=== PATIENT | male | born 1950 ===

== ENCOUNTER 2017-05-04 14:39 | Emergency (ER) | payer OTHER ==
[2017-05-04 15:46] VITALS: TEMP 98.1
--- NOTE | 2017-05-04 16:22 | ED PDOC ---
HPI: General Adult Time Seen by Provider: 05/04/17 15:05 Chief Complaint (Nursing): Headache Chief Complaint (Provider): Dizziness, Body Aches History Per: Patient History/Exam Limitations: no limitations Onset/Duration Of Symptoms: Days (x 5) Current Symptoms Are (Timing): Still Present Additional Complaint(s): Luke is a 66 y/o male who presents to the ED complaining of dizziness, body aches, and chills for the past 5 days. Patient denies fever, vomiting, or abdominal pain. He has no past medical history and takes no medications. PMD: None Provided Past Medical History Reviewed: Historical Data, Nursing Documentation, Vital Signs Vital Signs: Last Vital Signs Temp 98.1 F 05/04/17 19:34 Pulse 65 05/04/17 19:34 Resp 19 05/04/17 19:34 BP 127/73 05/04/17 19:34 Pulse Ox 99 05/04/17 19:34 - Medical History PMH: No Chronic Diseases - Surgical History Surgical History: No Surg Hx - Family History Family History: States: Unknown Family Hx (no pertinent family history) - Social History Current smoker - smoking cessation education provided: No Alcohol: None Drugs: Denies - Immunization History Hx Tetanus Toxoid Vaccination: No Hx Influenza Vaccination: No Hx Pneumococcal Vaccination: No - Home Medications Home Medications: Ambulatory Orders Medication Instructions Recorded "Natural Pill For Prostate'' 03/31/14 Acetaminophen/Codeine Phosph 1 tab PO Q4 PRN #20 tab 03/31/14 [Acetaminophen and Codeine Phosphate #3 300 mg] Ibuprofen [Motrin Tab] 600 mg PO Q6 PRN #15 tab 05/04/17 Oseltamivir [Tamiflu] 75 mg PO BID #10 cap 05/04/17 - Allergies Allergies/Adverse Reactions: Allergies Allergy/AdvReac Type Severity Reaction Status Date / Time No Known Allergies Allergy Unverified 05/04/17 15:43 Review of Systems ROS Statement: Except As Marked, All Systems Reviewed And Found Negative Constitutional: Positive for: Chills, Other (body aches). Negative for: Fever Gastrointestinal: Negative for: Vomiting, Abdominal Pain Neurological: Positive for: Dizziness Physical Exam - Reviewed Nursing Documentation Reviewed: Yes Vital Signs Reviewed: Yes - Physical Exam Appears: Positive for: Well, No Acute Distress Head Exam: Positive for: ATRAUMATIC, NORMAL INSPECTION Skin: Positive for: Normal Color, Warm, Dry Eye Exam: Positive for: Normal appearance ENT: Positive for: Normal ENT Inspection Cardiovascular/Chest: Positive for: Regular Rate, Rhythm. Negative for: Murmur Respiratory: Positive for: Normal Breath Sounds. Negative for: Respiratory Distress Gastrointestinal/Abdominal: Positive for: Normal Exam, Soft. Negative for: Tenderness Extremity: Positive for: Normal ROM. Negative for: Pedal Edema, Deformity Neurologic/Psych: Positive for: Alert, Oriented. Negative for: Motor/Sensory Deficits - Laboratory Results Result Diagrams: 05/04/17 17:55 05/04/17 17:55 - ECG O2 Sat by Pulse Oximetry: 97 (RA) Pulse Ox Interpretation: Normal Medical Decision Making Medical Decision Making: Time: 16:20 Initial Impression: Rule out flu Initial Plan: --Flu Swab Time: 17:30 - Patient to be signed out to Dr. Ayala, pending work up and re-evaluation. Scribe Attestation: Documented by Bran Beaver, acting as a scribe for Samira Macedo MD Provider Scribe Attestation: All medical record entries made by the Scribe were at my direction and personally dictated by me. I have reviewed the chart and agree that the record accurately reflects my personal performance of the history, physical exam, medical decision making, and the department course for this patient. I have also personally directed, reviewed, and agree with the discharge instructions and disposition. Disposition - Clinical Impression Clinical Impression: Flu-like symptoms - Patient ED Disposition Is Patient to be Admitted: Transfer of Care - Disposition Disposition: Transfer of Care Disposition Time: 17:00 Condition: STABLE Additional Instructions: Drink plenty of fluids and take medications as directed. Return to ER for any new or worsening symptoms. Prescriptions: Ibuprofen [Motrin Tab] 600 mg PO Q6 PRN #15 tab PRN Reason: Pain, Moderate (4-7) Oseltamivir [Tamiflu] 75 mg PO BID #10 cap Instructions: Flu, Adult (DC) Forms: [facility] ([place]) Print Language: [place] Patient Signed Over To: Andres Ayala III
--- NOTE | 2017-05-04 17:35 | ED PDOC ---
- Laboratory Results Result Diagrams: 05/04/17 17:55 05/04/17 17:55 - ECG O2 Sat by Pulse Oximetry: 97 (RA) Medical Decision Making Medical Decision Making: pending labs/re-eval and dispo, poss flu labs unremarkable improved in ED re-eval abdomen nontender, no SOB, no chest pain. Disposition - Clinical Impression Clinical Impression: Flu-like symptoms - POA Present On Arrival: None - Disposition Disposition: Routine/Home Disposition Time: 19:17 Condition: STABLE Additional Instructions: Drink plenty of fluids and take medications as directed. Return to ER for any new or worsening symptoms. Prescriptions: Ibuprofen [Motrin Tab] 600 mg PO Q6 PRN #15 tab PRN Reason: Pain, Moderate (4-7) Oseltamivir [Tamiflu] 75 mg PO BID #10 cap Instructions: Flu, Adult (DC) Forms: [facility] ([place]ian) Print Language: [place]
[2017-05-04 18:15] LABS: BASO % 0.4 % (0.0-2.0); EOS # 0.1 K/uL (0.0-0.7); EOS % 1.9 % (0.0-4.0); HEMOGLOBIN 13.1 g/dL (12.0-18.0); LYMPH # 1.7 K/uL (1.0-4.3); LYMPH % 29.2 % (20.0-40.0); MEAN CELL VOLUME 89.5 fl (80.0-94.0); MEAN CORPUSCULAR HEMOGLOBIN 30.7 pg (27.0-31.0); MEAN CORPUSCULAR HGB CONC 34.2 g/dL (33.0-37.0); MEAN PLATELET VOLUME 9.5 fl (7.2-11.7); MONO # 0.4 K/uL (0.0-0.8); NEUT # 3.5 K/uL (1.8-7.0); NEUT % 61.5 % (50.0-75.0); NRBC % 0.2 % (0.0-0.0); RBC 4.27 Mil/uL (4.40-5.90); RED CELL DISTRIBUTION WIDTH 13.8 % (11.5-14.5); WHITE BLOOD COUNT 5.7 K/uL (4.8-10.8)
[2017-05-04 18:25] LABS: ALB/GLOB RATIO 0.9 (1.0-2.1); ALBUMIN 3.7 g/dL (3.5-5.0); ALT/SGPT 59 U/L (21-72); AST/SGOT 54 U/L (17-59); BLOOD UREA NITROGEN 16 mg/dl (9-20); CALCIUM 8.5 mg/dL (8.4-10.2); GFR AFRICAN-AMERICAN > 60; GFR NON-AFRICAN AMERICAN > 60
[2017-05-04 19:35] VITALS: BP 127/73; PULSE 65; RESP 19
[2017-05-05 23:44] VITALS: O2SAT 97
== END 2017-05-04 19:35 | disposition home or self-care (01) ==
LOC: H.ER 14:39
DX: J11.1 Influenza due to unidentified influenza virus with other respiratory manifestations (principal)